=== PATIENT | female | born 1990 | race Hispanic/Latino ===

== ENCOUNTER → 2019-04-18 | Outpatient (CLI) | payer SELFPAY ==
[~2019-04-18] MED LIST: IOHEXOL-350 75 ML VIAL IV ONE
== END | disposition home or self-care (01) ==
LOC: RAH 07:48
PROVIDERS: ATTEND Family Medicine
DX: K44.9 Diaphragmatic hernia without obstruction or gangrene (principal); K76.0 Fatty (change of) liver, not elsewhere classified; Z90.49 Acquired absence of other specified parts of digestive tract
CPT/HCPCS: 74170; Q9967

== ENCOUNTER 2021-09-06 08:38 | Observation (INO) | payer OTHER ==
[2021-09-06] VITALS (12 sets, daily range): BP systolic 110–125; BP diastolic 68–90
[~2021-09-06] VITALS: Ht 157.5 cm; Wt 62.0 kg
[2021-09-06 10:01] LABS: BASOPHILS % (AUTO) 0.2 % (0.0-5.0); EOSINOPHILS % (AUTO) 1.1 % (0.0-8.0); HEMATOCRIT 28.6 % (36-48); MEAN CORPUSCULAR HEMOGLOBIN 24.1 pg (27.0-33.0); MEAN CORPUSCULAR HGB CONC 29.7 g/dL (32.0-36.0); MONOCYTES % (AUTO) 5.3 % (3.0-13.0); NEUTROPHILS % (AUTO) 58.1 % (40.0-77.0); PLATELET COUNT (AUTO) 408 K/uL (130-400); RED BLOOD CELL COUNT(AUTO) 3.53 MIL/uL (4.00-5.50); RED CELL DISTRIBUTION WIDTH 15.9 % (11.0-15.5); WHITE BLOOD COUNT (AUTO) 4.7 K/uL (4.8-10.8)
[2021-09-06 10:14] LABS: CREATININE 1.1 mg/dL (0.5-1.5); INR 0.96 (0.85-1.15); POTASSIUM 3.7 mmol/L (3.5-5.1); PROTHROMBIN TIME 10.5 SEC (9.6-11.6)
[2021-09-06] MEDS ORDERED: ACETAMINOPHEN 325 MG TAB PO PRN (15:30)
[2021-09-06] MEDS ORDERED: ONDANSETRON 4MG INJ IVP PRN ×2 (16:30→23:00)
[2021-09-06] MEDS ORDERED: HYDR300T PO (16:55)
[2021-09-06] MEDS ORDERED: BENA10TA77 PO (16:55)
[2021-09-06] MEDS ORDERED: FOLI1TAB85 PO (16:55)
[2021-09-06] MEDS ORDERED: PRED10TA3 PO (16:55)
[2021-09-06] MEDS ORDERED: CHOL500045 PO (16:55)
[2021-09-06] MEDS ORDERED: CETI10TA57 PO (16:55)
[2021-09-06] MEDS ORDERED: [UNRECOGNIZED DRUG - OTHER] PO (16:55)
[2021-09-06] MEDS ORDERED: LIDOCAINE HCL MPF 1% 5ML VIAL ONE (17:26)
[2021-09-07 00:44] VITALS: BP 131/72
[2021-09-07 03:29] VITALS: BP 124/84
[2021-09-07 05:05] LABS: HEMATOCRIT 28.3 % (36-48); MEAN CORPUSCULAR HEMOGLOBIN 24.9 pg (27.0-33.0); MEAN CORPUSCULAR HGB CONC 30.7 g/dL (32.0-36.0); MEAN CORPUSCULAR VOLUME 80.9 fL (79-99); RED BLOOD CELL COUNT(AUTO) 3.5 MIL/uL (4.00-5.50); RED CELL DISTRIBUTION WIDTH 15.6 % (11.0-15.5); WHITE BLOOD COUNT (AUTO) 4.7 K/uL (4.8-10.8)
[2021-09-07 05:22] LABS: CREATININE 1.1 mg/dL (0.5-1.5); POTASSIUM 4.1 mmol/L (3.5-5.1)
[2021-09-07 05:39] LABS: % IRON SATURATION 6.8 % (22-44)
[2021-09-07 08:02] VITALS: BP 118/79
[2021-09-07] MEDS ORDERED: VITAMIN B COMPLEX 1 CAPSULE PO SCH (09:00)
[2021-09-07] MEDS ORDERED: [UNRECOGNIZED DRUG - OTHER] PO SCH (09:00)
[2021-09-07] MEDS ORDERED: CHOLECALCIFEROL 125 MCG PO SCH (09:00)
[2021-09-07] MEDS ORDERED: PREDNISONE 10 MG TABLET PO SCH (09:00)
[2021-09-07] MEDS ORDERED: BENAZEPRIL HCL 10 MG TABLET PO SCH (09:00)
[2021-09-07] MEDS ORDERED: HYDROXYCHLOROQUINE SULFATE 200 MG TAB PO SCH (09:00)
[2021-09-07] MEDS ORDERED: CETIRIZINE HCL 5 MG TABLET PO SCH (09:00)
[2021-09-07 11:07] VITALS: BP 110/72
[2021-09-07] MEDS ORDERED: FERS325 PO (15:47)
[2021-09-07 16:11] VITALS: BP 114/60
[2021-09-07] MEDS ORDERED: PHARMACY COMMUNICATION MISC SCH (16:30)
[2021-09-07] MEDS ORDERED: IRON SUCROSE COMPLEX 400 MG in 0.9% NACL 250ML 250 ML IVP SCH (17:30)
== END 2021-09-07 20:00 | disposition home or self-care (01) ==
LOC: 3BH 08:38 → EDSTATUS 10:00
PROVIDERS: ADMIT Internal Medicine Nephrology; ATTEND Internal Medicine Nephrology
DX: M32.14 Glomerular disease in systemic lupus erythematosus (principal); Z20.822 Contact with and (suspected) exposure to COVID-19; R80.9 Proteinuria, unspecified; N28.9 Disorder of kidney and ureter, unspecified; E78.5 Hyperlipidemia, unspecified; D64.9 Anemia, unspecified; M19.90 Unspecified osteoarthritis, unspecified site; M32.9 Systemic lupus erythematosus, unspecified; I10 Essential (primary) hypertension; Z79.899 Other long term (current) drug therapy
CPT/HCPCS: 36415 ×2; 50200; 76942; 80048 ×2; 82728; 83540; 83550; 85025; 85027; 85610; 85730; 87635; 96365; 96375; G0378 ×27; J1756; J2405; J3490; J7050; J7512 ×2